=== PATIENT | female | born 1940 | race Caucasian/White ===

== ENCOUNTER → 2017-07-23 | Outpatient (CLI) | payer OTHER | END | disposition home or self-care (01) | DX: R26.2 Difficulty in walking, not elsewhere classified (principal); M25.552 Pain in left hip; M25.652 Stiffness of left hip, not elsewhere classified; M62.81 Muscle weakness (generalized); M16.12 Unilateral primary osteoarthritis, left hip | CPT/HCPCS: 97161 GP; 97165 GO; 97530 GP; 97537 GO ==

== ENCOUNTER 2017-10-27 22:03 | Inpatient (IN) | payer OTHER ==
[~2017-10-27] VITALS: Ht 167.6 cm; Wt 75.0 kg
[~2017-10-27 22:03] MED LIST: CHANTIX1 EACH PO; GLUCOPHAGE500 MG PO; NAPROSYN500 MG PO
[2017-10-28 10:05] VITALS: BP 129/67
[2017-10-28 17:24] VITALS: BP 183/81
[2017-10-28 18:02] VITALS: BP 158/79
[2017-10-28 19:54] VITALS: BP 131/62
[2017-10-28 21:39] LABS: HEMATOCRIT 33.5 % (36.0-46.0); MCV 87.5 FL (83-99)
[2017-10-28 21:40] LABS: HEMOGLOBIN 10.4 G/DL (11.9-15.5)
[2017-10-29 00:26] VITALS: BP 144/68
[2017-10-29 04:14] VITALS: BP 133/62
[2017-10-29 05:46] LABS: HEMATOCRIT 30.9 % (36.0-46.0); HEMOGLOBIN 9.7 G/DL (11.9-15.5); MCV 86.8 FL (83-99)
[2017-10-29 06:11] LABS: CHLORIDE 104 MEQ/L (99-109); CREATININE 0.8 MG/DL (0.6-1.3); GFR ESTIMATE (CALCULATED) > 59 mL/min/; GLUCOSE 145 mg/dL (70-99); POTASSIUM 4.6 MEQ/L (3.7-5.4); SODIUM 138 MEQ/L (136-147); UREA NITROGEN (BUN) 21 mg/dL (9-23)
[2017-10-29 07:43] VITALS: BP 130/66
[2017-10-29 11:40] VITALS: BP 130/65
[2017-10-29 15:40] VITALS: BP 136/76
[2017-10-29 20:18] VITALS: BP 128/80
[2017-10-30 00:19] VITALS: BP 153/71
[2017-10-30 04:23] VITALS: BP 155/67
[2017-10-30 08:00] VITALS: BP 127/69
[2017-10-30] MEDS ORDERED: SENNA PLUS TAB1 EACH PO (09:25)
[2017-10-30] MEDS ORDERED: ENDOCET 5-3251 EACH PO (09:26)
[2017-10-30] MEDS ORDERED: ELIQUIS2.5 MG PO (09:26)
[2017-10-30 12:17] VITALS: BP 147/70
[2017-10-30] MEDS ORDERED: CELEBREX200 MG PO (17:06)
== END 2017-10-30 16:46 | DRG 470 ==
LOC: ENRESERV 22:03 → 2SOUTH 10-28 08:47 → 3WEST 10-28 16:56
PROVIDERS: Orthopaedic Surgery
PROC: 0SRB02A Replacement of Left Hip Joint with Metal on Polyethylene Synthetic Substitute, Uncemented, Open Approach (ICD-10-PCS; principal; 2017-10-28)
DX: M16.12 Unilateral primary osteoarthritis, left hip (principal); Z90.710 Acquired absence of both cervix and uterus
CPT/HCPCS: 80048; 82948; 85014; 85018; J0131; J0171; J0690; J1170; J1815; J2405; J3010; J7050; J7120

== ENCOUNTER 2017-10-30 11:34 | Inpatient (IN) | payer OTHER ==
[~2017-10-30] VITALS: Ht 167.6 cm; Wt 74.7 kg
[~2017-10-30 11:34] MED LIST changes: +ELIQUIS2.5 MG PO; +ENDOCET 5-3251 EACH PO; +SENNA PLUS TAB1 EACH PO
[2017-10-30 16:58] VITALS: BP 154/80; BP 173/77
[2017-10-30] MEDS ORDERED: CELEBREX200 MG PO (17:06)
[2017-10-31 00:21] VITALS: BP 142/67
[2017-10-31 05:00] VITALS: BP 125/62
[2017-10-31 06:33] LABS: HEMATOCRIT 28.7 % (36.0-46.0); HEMOGLOBIN 9.2 G/DL (11.9-15.5); MCH 27.3 PG (29.0-34.0); MCHC 32.1 G/DL (30.0-36.0); MCV 85.2 FL (83-99); PLATELET COUNT 255 K/uL (156-360); RBC DIS.WIDTH-CV 15.7 % (11.8-14.6); RBC DIS.WIDTH-SD 48.7 % (39-53); WHITE BLOOD COUNT 8.7 K/uL (4.1-10.2)
[2017-10-31 06:34] LABS: RED BLOOD COUNT 3.37 M/uL (3.80-5.20)
[2017-10-31 06:55] LABS: ALBUMIN 2.7 G/DL (3.2-4.8); ALKALINE PHOSPHATASE 47 IU/L (3-129); ALT (GPT) 7 IU/L (3-49); AST (GOT) 18 IU/L (2-34); CHLORIDE 105 MEQ/L (99-109); CREATININE 0.9 MG/DL (0.6-1.3); GFR ESTIMATE (CALCULATED) > 59 mL/min/; GLUCOSE 127 mg/dL (70-99); POTASSIUM 3.8 MEQ/L (3.7-5.4); SODIUM 138 MEQ/L (136-147); TOTAL BILIRUBIN 0.4 MG/DL (0.0-1.0); TOTAL PROTEIN 5.1 G/DL (6.4-8.3); UREA NITROGEN (BUN) 15 mg/dL (9-23)
[2017-10-31 15:38] VITALS: BP 140/70
[2017-11-01 06:47] VITALS: BP 122/65
[2017-11-01 15:09] VITALS: BP 128/57
[2017-11-02 04:53] VITALS: BP 134/63
[2017-11-02 15:04] VITALS: BP 118/65
[2017-11-03 06:00] VITALS: BP 121/58
[2017-11-03 16:34] VITALS: BP 134/70
[2017-11-04 05:16] VITALS: BP 126/65
[2017-11-04 15:56] VITALS: BP 118/71
[2017-11-05 05:23] VITALS: BP 110/63
[2017-11-05 15:29] VITALS: BP 133/62
[2017-11-06 05:06] VITALS: BP 131/65
[2017-11-06 15:11] VITALS: BP 149/61
[2017-11-07 05:20] VITALS: BP 129/64
[2017-11-07 07:15] VITALS: BP 118/64
[2017-11-07 16:28] VITALS: BP 126/60
[2017-11-08 05:33] VITALS: BP 132/67
[2017-11-08] MEDS ORDERED: GLUCOPHAGE500 MG PO (09:44)
[2017-11-08] MEDS ORDERED: CELEBREX200 MG PO (09:44)
[2017-11-08] MEDS ORDERED: SENNA PLUS TAB1 EACH PO (09:44)
[2017-11-08] MEDS ORDERED: POLYETHYLENE GL17 GM PO (09:44)
== END 2017-11-08 14:32 | disposition home health service (06) | DRG 560 ==
LOC: 3WEST 11:34 → ENPENDDIS 11-08 → 3WEST 11-08 14:32
PROVIDERS: Physical Medicine & Rehabilitation Pain Medicine
PROC: F07M0ZZ Range of Motion and Joint Mobility Treatment of Musculoskeletal System - Whole Body (ICD-10-PCS; principal; 2017-10-30)
DX: Z47.1 Aftercare following joint replacement surgery (principal); R26.2 Difficulty in walking, not elsewhere classified; Z96.642 Presence of left artificial hip joint; D62 Acute posthemorrhagic anemia; G89.18 Other acute postprocedural pain; E11.9 Type 2 diabetes mellitus without complications; J43.9 Emphysema, unspecified; K59.00 Constipation, unspecified; M62.838 Other muscle spasm; M47.814 Spondylosis without myelopathy or radiculopathy, thoracic region; M47.816 Spondylosis without myelopathy or radiculopathy, lumbar region; M25.561 Pain in right knee; M25.562 Pain in left knee; Z87.891 Personal history of nicotine dependence
CPT/HCPCS: 74018; 80053; 82948; 85027; 97110 GO; 97530 GP; J1815